=== PATIENT | male | born 1995 | race Caucasian/White ===

== ENCOUNTER 2017-01-13 22:34 | Inpatient (IN) | payer OTHER ==
[~2017-01-13] VITALS: Ht 177.8 cm; Wt 78.1 kg
[~2017-01-13 22:34] MED LIST: EPIPEN 2-PAK1 MG/ML IM; NO HOME MEDICATIONS; PEN-VEE K500 MG PO; PERCOCET 325 MG1 TA2 PO; PREDNISONE20 MG PO; ULTRAM 50MG TAB50 MG PO
[2017-01-13 23:13] LABS: BASO # 0.1 (0.0-0.2); BASO % 0.3 % (0.0-2.0); GRAN % 86.5 % (42.2-75.2); HEMATOCRIT 45.6 % (36.0-47.0); HEMOGLOBIN 15.5 g/dl (12.5-16.1); MEAN CELL VOLUME 93 fl (80.0-95.0); MEAN CORPUSCULAR HEMOGLOBIN 32 pg (26.0-32.0); MEAN CORPUSCULAR HGB CONC 34 g/dl (33.0-37.0); MEAN PLATELET VOLUME 9.3 fl (7.4-10.4); MONO # 1.2 (0.1-0.6); MONO % 6.8 % (1.7-9.3); PLATELET COUNT 193 K/mm3 (130-400); REDCELL DISTRIBUTION WIDTH-CV 12.9 % (11.5-14.5); WHITE BLOOD COUNT 17.4 K/mm3 (4.8-10.8)
[2017-01-13 23:24] LABS: ALBUMIN 4.2 gm/dL (3.5-5.0); BILIRUBIN,TOTAL 1.4 mg/dL (0.0-1.0); CALCIUM 9.2 mg/dL (8.4-10.2); CREATININE, serum 1.3 mg/dL (0.66-1.25); POTASSIUM 3.6 mmol/L (3.4-5.0); TOTAL PROTEIN 7.8 gm/dL (6.4-8.2)
[2017-01-13 23:56] LABS: C-REACTIVE PROTEIN 16.3 mg/dL (0.0-0.9)
[2017-01-14 03:28] VITALS: BP 122/64; PULSE 94; TEMP 99.1
[2017-01-14 07:29] VITALS: BP 113/76; PULSE 113; TEMP 99.7
[2017-01-14 09:02] LABS: HEMATOCRIT 44.3 % (36.0-47.0); HEMOGLOBIN 14.9 g/dl (12.5-16.1); MEAN CELL VOLUME 95 fl (80.0-95.0); MEAN CORPUSCULAR HEMOGLOBIN 32 pg (26.0-32.0); MEAN CORPUSCULAR HGB CONC 34 g/dl (33.0-37.0); MEAN PLATELET VOLUME 9.7 fl (7.4-10.4); PLATELET COUNT 187 K/mm3 (130-400); RED BLOOD COUNT 4.66 M/mm3 (4.20-5.60); REDCELL DISTRIBUTION WIDTH-CV 13.1 % (11.5-14.5); WHITE BLOOD COUNT 14.4 K/mm3 (4.8-10.8)
[2017-01-14 09:03] LABS: ADD PATHOLOGY DIFF REVIEW NO
[2017-01-14 09:11] LABS: CALCIUM 8.7 mg/dL (8.4-10.2); CREATININE, serum 1.28 mg/dL (0.66-1.25); POTASSIUM 3.6 mmol/L (3.4-5.0)
[2017-01-14 09:36] LABS: BAND 43 % (0-10); METAMYELOCYTE 2 % (0-0); NEUTROPHILS 48 % (42.0-75.2); PLATELET ESTIMATE NORMAL (NORMAL); TOTAL CELLS COUNTED 100
[2017-01-14 12:38] VITALS: BP 124/54; PULSE 110; TEMP 99.4
[2017-01-14 15:37] VITALS: BP 106/52; PULSE 90; TEMP 98.7
[2017-01-14 19:22] VITALS: BP 124/65; PULSE 97; TEMP 98.7
[2017-01-14 23:55] VITALS: BP 105/59; PULSE 96; TEMP 98.1
[2017-01-15] VITALS (11 sets, daily range): BP systolic 104–125; BP diastolic 52–74; PULSE 67–84; TEMP 98–99.2
[2017-01-15 07:41] LABS: HEMATOCRIT 38.4 % (36.0-47.0); MEAN CELL VOLUME 94 fl (80.0-95.0); MEAN CORPUSCULAR HEMOGLOBIN 32 pg (26.0-32.0); MEAN CORPUSCULAR HGB CONC 34 g/dl (33.0-37.0); PLATELET COUNT 180 K/mm3 (130-400); RED BLOOD COUNT 4.07 M/mm3 (4.20-5.60); REDCELL DISTRIBUTION WIDTH-CV 12.8 % (11.5-14.5); WHITE BLOOD COUNT 9.1 K/mm3 (4.8-10.8)
[2017-01-15 07:49] LABS: HEMOGLOBIN 12.9 g/dl (12.5-16.1)
[2017-01-15 07:50] LABS: ADD PATHOLOGY DIFF REVIEW NO
[2017-01-15 08:12] LABS: CALCIUM 8.6 mg/dL (8.4-10.2); CREATININE, serum 0.99 mg/dL (0.66-1.25); POTASSIUM 3.5 mmol/L (3.4-5.0)
[2017-01-15 08:32] LABS: BAND 31 % (0-10); NEUTROPHILS 49 % (42.0-75.2); TOTAL CELLS COUNTED 100
[2017-01-15 08:33] LABS: PLATELET ESTIMATE NORMAL (NORMAL)
[2017-01-15 14:47] LABS: C-REACTIVE PROTEIN 18.7 mg/dL (0.0-0.9)
[2017-01-16 03:31] VITALS: BP 129/73; PULSE 75; TEMP 98.8
[2017-01-16 07:14] LABS: BASO % 0.3 % (0.0-2.0); EOS # 0.1 (0.0-0.7); EOS % 1.5 % (0-4.0); GRAN # 4.6 (1.4-6.5); GRAN % 68.8 % (42.2-75.2); HEMOGLOBIN 13.2 g/dl (12.5-16.1); LYMPH # 1.5 (1.2-3.4); LYMPH % 22.3 % (20.0-51.0); MEAN CELL VOLUME 94 fl (80.0-95.0); MEAN CORPUSCULAR HEMOGLOBIN 32 pg (26.0-32.0); MEAN CORPUSCULAR HGB CONC 34 g/dl (33.0-37.0); MEAN PLATELET VOLUME 9.6 fl (7.4-10.4); MONO # 0.5 (0.1-0.6); MONO % 6.8 % (1.7-9.3); PLATELET COUNT 221 K/mm3 (130-400); RED BLOOD COUNT 4.15 M/mm3 (4.20-5.60); REDCELL DISTRIBUTION WIDTH-CV 12.8 % (11.5-14.5); WHITE BLOOD COUNT 6.7 K/mm3 (4.8-10.8)
[2017-01-16 07:29] LABS: ADJUSTED CALCIUM 9.4 mg/dL (8.4-10.2); ALBUMIN 3.2 gm/dL (3.5-5.0); BILIRUBIN,TOTAL 0.5 mg/dL (0.0-1.0); CALCIUM 8.8 mg/dL (8.4-10.2); CREATININE, serum 0.85 mg/dL (0.66-1.25); MAGNESIUM 1.8 mg/dL (1.6-2.3); POTASSIUM 3.6 mmol/L (3.4-5.0); TOTAL PROTEIN 6.3 gm/dL (6.4-8.2)
[2017-01-16 07:43] VITALS: BP 123/58; PULSE 71; TEMP 97.3
[2017-01-16] MEDS ORDERED: CIPRO 500MG TA500 MG PO (10:36)
[2017-01-16] MEDS ORDERED: FLAGYL500 MG PO (10:37)
[2017-01-16] MEDS ORDERED: ZOFRAN 4MG T4 MG/TAB PO (10:37)
[2017-01-16] MEDS ORDERED: NORCO 325 MG-51 TAB PO (10:40)
== END 2017-01-16 12:13 | disposition home or self-care (01) | DRG 872 ==
LOC: COL.ER 22:34 → MEDICAL 01-14 00:53
PROVIDERS: Internal Medicine Cardiovascular Disease; Internal Medicine Gastroenterology; Nurse Practitioner; Physician Assistant
PROC: 0DBH8ZX Excision of Cecum, Via Natural or Artificial Opening Endoscopic, Diagnostic (ICD-10-PCS; 2017-01-15)
PROC: 0DBK8ZX Excision of Ascending Colon, Via Natural or Artificial Opening Endoscopic, Diagnostic (ICD-10-PCS; principal; 2017-01-15 15:15)
DX: A41.9 Sepsis, unspecified organism (principal); N17.9 Acute kidney failure, unspecified; K52.9 Noninfective gastroenteritis and colitis, unspecified; E86.0 Dehydration; E87.6 Hypokalemia; E83.42 Hypomagnesemia
CPT/HCPCS: 99222-AI; 99231-AI; 99232-AI; 99239; J0744; J1170; J1885; J2250; J2405; J3010; J3475; J3480; J7030; Q9967

== ENCOUNTER 2018-06-06 01:26 | Emergency (ER) | payer BC | END 2018-06-06 06:52 | disposition home or self-care (01) | LOC: COL.ER 01:26 | DX: J95.830 Postprocedural hemorrhage of a respiratory system organ or structure following a respiratory system procedure (principal) ==